=== PATIENT | female | born 1970 | race African-American/Black ===

== ENCOUNTER → 2016-06-21 | Outpatient (CLI) | payer BC ==
--- NOTE | 2016-06-21 09:08 | RAD ---
DATE: 06/21/16 EXAM: DIGITAL DIAGNOSTIC BILATERAL HISTORY: Pain right upper outer breast, no lump COMPARISON: 06/15/13 This study was interpreted with the benefit of Computerized Aided Detection (CAD). TECHNIQUE: Routine CC and MLO views of both breasts are obtained. FINDINGS: The breast tissue density is [A ] . Almost fatty breast parenchyma. There are no dominant suspicious masses, suspicious microcalcifications or evidence of architectural distortion. Skin and nipples are intact IMPRESSION: Negative exam. Patient is to be followed up clinically. BI-RADS CATEGORY: 1 NEGATIVE RECOMMENDED FOLLOW-UP: 12M 12 MONTH FOLLOW-UP PQRS compliance statement: Patient information was entered into a reminder system with a target due date for the next mammogram. Mammography is a sensitive method for finding small breast cancers, but it does not detect them all and is not a substitute for careful clinical examination. A negative mammogram does not negate a clinically suspicious finding and should not result in delay in biopsying a clinically suspicious abnormality. "Our facility is accredited by the [employer] Mammography [employer]."
== END | disposition home or self-care (01) ==
LOC: KCIC MAMMO 08:21
PROVIDERS: ATTEND Internal Medicine
DX: N64.4 Mastodynia (principal)
CPT/HCPCS: G0204; 77066

== ENCOUNTER → 2018-08-02 | Outpatient (CLI) | payer BC, OTHER ==
--- NOTE | 2018-08-02 16:23 | KCIC ---
Bilateral digital screening mammograms: Reason for examination: Routine screening. Comparison is made to previous studies dated 06/21/2016 and 02/12/2014. Interpretation was made with the benefit of CAD. The skin and nipples show no abnormalities. No abnormal axillary lymph nodes are seen. The breast parenchyma shows scattered fibroglandular density. (Breast density: Category B.) There are no dominant masses, suspicious calcifications or architectural distortions. Impression: No evidence of malignancy. Recommend routine screening. BI-RADS Category 1: Negative. "Our facility is accredited by the [employer] Mammography [employer]." This patient's information has been entered into a reminder system for the patient to be notified with the results of her examination and a target date for the next mammogram. Electronically signed by: Savanah Montoya MD (08/02/2018 4:21 PM) [id number]
== END | disposition home or self-care (01) ==
LOC: KCIC MAMMO 13:58
PROVIDERS: ATTEND Internal Medicine
DX: Z12.31 Encounter for screening mammogram for malignant neoplasm of breast (principal)
CPT/HCPCS: 77067

== ENCOUNTER → 2020-02-06 | Outpatient (CLI) | payer BC ==
--- NOTE | 2020-02-06 16:41 | KCIC ---
Bilateral diagnostic digital mammograms: Reason for examination: Right breast pain. No left breast complaints. Comparison is made to previous studies dated back to 02/12/2014. Interpretation was made with the benefit of CAD. The skin and nipples show no abnormalities. No abnormal axillary lymph nodes are seen. The breast parenchyma shows scattered fibroglandular density. (Breast density: Category B.) There is some minimal nodular asymmetry at the 1:00 B position of the left breast. There is a subtle area of tissue asymmetry posteriorly at the 9:00 position of the right breast. No suspicious calcifications are seen. Impression: Small parenchymal asymmetry at the 1:00 B position of the left breast and subtle tissue asymmetry at the 9:00 position posteriorly in the right breast. Ultrasound to follow. Bilateral breast ultrasound: Ultrasound examination was performed bilaterally in the areas of mammographic and clinical concern and at the axilla. In the right breast in the area of clinical concern at the 8:00 position 8 cm from the nipple, there are no cystic or solid nodules. No abnormal appearing lymph nodes are seen in the axilla. In the area of pain in the right breast at the 3:00 position, no focal abnormalities are seen. In the left breast in the area of mammographic concern, no discrete cystic or solid nodules are seen. No abnormal appearing lymph nodes are seen in the left axilla. IMPRESSION: No focal or suspicious abnormality seen in either breast. Recommend clinical follow-up and routine mammographic follow-up. BI-RADS Category 2: Benign. "Our facility is accredited by the [employer] Mammography [employer]." This patient's information has been entered into a reminder system for the patient to be notified with the results of her examination and a target date for the next mammogram. Electronically signed by: Savanah Montoya MD (02/06/2020 4:38 PM) [id number]
== END ==
LOC: KCIC MAMMO 08:27
PROVIDERS: ATTEND Internal Medicine
DX: N64.89 Other specified disorders of breast (principal); N64.4 Mastodynia
CPT/HCPCS: 76641; 77066